=== PATIENT | male | born 1960 | race Caucasian/White ===

== ENCOUNTER 2019-01-29 20:47 | Emergency (ER) | payer OTHER ==
[~2019-01-29] VITALS: Ht 182.9 cm; Wt 120.0 kg
[2019-01-29 21:06] VITALS: BP 138/98
[2019-01-29 21:26] LABS: BASOPHILS # (AUTO) 0.05 x10^3/uL (0-0.1); BASOPHILS % (AUTO) 1 % (0-1); EOSINOPHILS # (AUTO) 0.16 x10^3/uL (0-0.4); EOSINOPHILS % (AUTO) 2 % (1-7); LYMPHOCYTES # (AUTO) 3.75 x10^3/uL (1-3.4); LYMPHOCYTES % (AUTO) 40 % (22-44); MD NO; MEAN CORPUSCULAR HEMOGLOBIN 34.2 pg (27.5-34.5); MEAN CORPUSCULAR HGB CONC 34.1 g/dL (33.2-36.2); MEAN CORPUSCULAR VOLUME 100.3 fL (81-97); MEAN PLATELET VOLUME 7.7 fL (7.4-10.4); MONOCYTES # (AUTO) 0.63 x10^3/uL (0.2-0.8); MONOCYTES % (AUTO) 7 % (2-9); NEUTROPHILS # (AUTO) 4.71 x10^3/uL (1.8-6.8); NEUTROPHILS % (AUTO) 51 % (42-75); PLATELET COUNT 175 x10^3/uL (130-400); RED BLOOD COUNT 4.77 x10^6/uL (4.38-5.82); RED CELL DISTRIBUTION WIDTH 14.2 % (9.4-14.8)
[2019-01-29] MEDS ORDERED: SODIUM CHLORIDE 0.9% 1,000ML IVBOLUS ONE (21:30)
[2019-01-29 21:33] LABS: ALANINE AMINOTRANSFERASE 52 U/L (12-78); ALBUMIN 3.6 g/dL (3.4-5.0); ANION GAP 5 mmol/L (5-15); CALCIUM 8.5 mg/dL (8.5-10.1); CHLORIDE 104 mmol/L (98-107); CREATININE 1.05 mg/dL (0.7-1.3)
--- NOTE | 2019-01-29 21:37 | NUR ---
PT HERE AFTER HAIVNG A GLF, PER DAUGHTER PT HAS BEEN ABUSING NARCOTICS AND IS A CHRONIC DRINKER. PER DAUGHTER PT INGESTED BOTH TODAY AND HAS NOT BEEN FEELIGN WELL. PT REPORTS HE IS SUPPOSE TO HAVE SURGERY IN THE MORNING AT THE [facility]. PT IS A/OX4 4 AND PUPILS ARE PINPOINT AT THIS TIME. PT DENIES ANY TRUAMA OR LOSS OF LOC. PT RESTINGIN BED AND CONNECTED TO ALL MONITORS. CALL LIGHT IN REACH. AWAITING FURHTER ORDERS.
[2019-01-29 21:38] LABS: ALKALINE PHOSPHATASE 72 U/L (45-117); BILIRUBIN,TOTAL 0.5 mg/dL (0.2-1.0); TOTAL PROTEIN 7.2 g/dL (6.4-8.2); TROPONIN I < 0.015 ng/mL (0.000-0.045)
--- NOTE | 2019-01-29 22:02 | NUR ---
PT PULLED OUT PIV, REQUESTING PAIN MEDICATIONS. PT INFORMED THAT HE HAS GROSS ETOH SMELL AND IS UNSAFE TO GIVE NARCOTICS AT THIS TIME.
[2019-01-29 22:26] LABS: INTERNATIONAL NORMALIZED RATIO 1.01 (0.93-1.1); PROTHROMBIN TIME 10.6 Seconds (9.6-11.5)
--- NOTE | 2019-01-29 22:30 | NUR ---
PT AT THIS TIME WANTING TO LEAVE. PT SPEAKING IN FULL SENTANCES AND AMBULATING WITHOUT DIFFICULTY. PT REPORTS HE IS LEAVING. TP GIV[facility] DAUGHTER IS WAITING FOR HIM. PT HAD PIV REMOVED BY HIMSELF. PTS VSS. PT WALKED OUT TO CAB.
== END 2019-01-29 22:32 | disposition left against medical advice (07) ==
LOC: ED 21:17
DX: R55 Syncope and collapse (principal); I10 Essential (primary) hypertension; E11.9 Type 2 diabetes mellitus without complications; E78.5 Hyperlipidemia, unspecified; F17.200 Nicotine dependence, unspecified, uncomplicated; Z86.73 Personal history of transient ischemic attack (TIA), and cerebral infarction without residual deficits
CPT/HCPCS: 36415; 71045; 80053; 80307; 83880; 84443; 84484; 85025; 85610; 93005; 99284